=== PATIENT | female | born 1955 | race Hispanic/Latino ===

== ENCOUNTER 2017-09-08 20:28 | Emergency (ER) | payer BC ==
[~2017-09-08] VITALS: Ht 162.6 cm; Wt 99.8 kg
[~2017-09-08 20:28] MED LIST: ASPIRIN PO; HYDROCHLOROTHIA25 MG PO; LOSARTAN-HCTZ1 EAC1 PO; POTASSIUM CHLO10 ME1 PO; PREVACID15 MG PO; SERTRALINE HCL50 MG PO; TOPROL XL100 MG PO
[2017-09-08] MEDS ORDERED: IBUPROFEN 600 MG TAB PO STA (21:12)
[2017-09-08] MEDS ORDERED: IBUPROFEN 600 MG TAB ONE (21:17)
[2017-09-08 21:33] LABS: STREPTOCOCCUS GRP A ANTIGEN POSITIVE (NEGATIVE)
--- NOTE | 2017-09-08 21:39 | Diagnostic Imaging Report ---
CHEST 2 VIEWS, Technique: CHEST 2 VIEWS Comparison: 02/15/2017, 12/08/2015 Clinical history: Cough, congestion, fever DISCUSSION: Mildly enlarged cardiac silhouette, stable from priors. No edema or consolidation. No pleural effusion or pneumothorax. IMPRESSION: No acute abnormality Signed by: Dr Lee Ann Wiggins MD on 09/08/2017 9:35 PM
[2017-09-08 21:55] LABS: INFLUENZAE A&B ANTIGEN (RAPID) POSITIVE FLU A (NEGATIVE)
[2017-09-08] MEDS ORDERED: PENICILLIN G BENZATHINE LA 1.2 MU TBX IM STA (22:03)
[2017-09-08] MEDS ORDERED: PENICILLIN G BENZATHINE LA 1.2 MU TBX ONE (22:10)
== END 2017-09-08 23:12 | disposition home or self-care (01) ==
LOC: ER 20:28
DX: R50.9 Fever, unspecified (principal); R05 Cough; J09.X2 Influenza due to identified novel influenza A virus with other respiratory manifestations
CPT/HCPCS: 71020; 83518; 87400; 96372; 99283; J0561

== ENCOUNTER → 2018-04-05 | Outpatient (CLI) | payer BC | LOC: RAD 10:34 | PROVIDERS: ATTEND Family Medicine | DX: M79.602 Pain in left arm (principal) | CPT/HCPCS: 93971 ==

== ENCOUNTER → 2018-07-13 | Outpatient (CLI) | payer BC | LOC: RAD 09:44 | PROVIDERS: ATTEND Family Medicine | DX: M79.605 Pain in left leg (principal); M79.604 Pain in right leg | CPT/HCPCS: 93970 ==

== ENCOUNTER 2019-01-24 11:50 | Emergency (ER) | payer MEDICARE, OTHER ==
[~2019-01-24] VITALS: Ht 162.6 cm; Wt 99.8 kg
--- OUTSIDE RECORDS SUMMARY | 2019-01-24 11:53 | XMS REPORT ---
Author Author Keyon Ferrell Organization [employer] Address Unknown Phone Unavailable Care Team Providers Care Talent Development Analyst Name Role Phone Keyon Ferrell CP Unavailable Allergies No Known Allergies Problems Problem Type Condition Code Onset Dates Condition Status Problem Rheumatoid arthritis with positive rheumatoid factor M05.9 Active Problem Back pain of lumbar region with sciatica M54.40 Active Problem Raised antibody titer R76.0 Active Problem Inflammatory arthritis M19.90 Active Problem Rheumatoid factor positive R76.8 Active Problem Long-term use of high-risk medication Z79.899 Active Medications No Known Medications Results No Known Results Summary Purpose eClinicalWorks Submission
--- OUTSIDE RECORDS SUMMARY | 2019-01-24 11:53 | XMS REPORT ---
Author Author Luis Fernando Solis Organization [employer] Address Unknown Phone Unavailable Care Team Providers Care Split Leather Department Supervisor Name Role Phone Luis Fernando Solis CP Unavailable Allergies No Known Allergies Problems Problem Type Condition Code Onset Dates Condition Status Problem Rheumatoid arthritis with positive rheumatoid factor M05.9 Active Problem Back pain of lumbar region with sciatica M54.40 Active Problem Raised antibody titer R76.0 Active Problem Inflammatory arthritis M19.90 Active Problem Rheumatoid factor positive R76.8 Active Problem Long-term use of high-risk medication Z79.899 Active Medications Medication Code System Code Instructions Start Date End Date Status Dosage Folic Acid [facility] 21337533106 1MG Orally Once a day Oct 29, 2018 Active 1 tablet Results No Known Results Summary Purpose eClinicalWorks Submission
--- OUTSIDE RECORDS SUMMARY | 2019-01-24 11:53 | XMS REPORT ---
Author Author Luis Fernando Solis [facility] eClinicalWorks Address Unknown Phone Unavailable Care Team Providers Care Packer Fuser Name Role Phone Luis Fernando Solis Unavailable Allergies, Adverse Reactions, Alerts Substance Reaction Event Type contrast allergy Info Not Available Non Drug Allergy Problems Problem Type Condition Code Onset Dates Condition Status Assessment Long-term use of high-risk medication Z79.899 Active Problem Rheumatoid arthritis with positive rheumatoid factor M05.9 Active Problem Back pain of lumbar region with sciatica M54.40 Active Problem Raised antibody titer R76.0 Active Problem Inflammatory arthritis M19.90 Active Assessment Rheumatoid arthritis with positive rheumatoid factor M05.9 Active Problem Rheumatoid factor positive R76.8 Active Problem Long-term use of high-risk medication Z79.899 Active Medications Medication Code System Code Instructions Start Date End Date Status Dosage Methotrexate ND 67914189070 2.5 MG Orally Once a week Active 8 tablets Metoprolol Succinate ER ND 51185143737 100 MG Orally Once a day Active 1 tablet PredniSONE ND 45412729017 5MG Once a day Active 1-2 tabs prn for arthritis flare up Folic Acid ND 95644464364 1MG Active TAKE ONE TABLET BY MOUTH ONCE DAILY FOR 30 DAYS Robson Low Dose [facility] 43553085385 81 MG Orally Once a day Active 1 tablet Methotrexate ND 51083919539 2.5MG Active TAKE EIGHT TABLETS BY MOUTH ONCE A WEEK Hydroxychloroquine Sulfate ND 70000395678 200MG Active TAKE ONE TABLET BY MOUTH TWICE DAILY WITH FOOD [place] [address]-71 10 MEQ Orally once a day Active 1 capsule with food Losartan Potassium-HCTZ ND 34624414888 100-25 MG Orally Once a day Active 1 tablet Sertraline HCl ND 25548599906 50 MG Orally Once a day Active 1 tablet Fluticasone Propionate ND 38512379697 50 MCG/ACT Nasally Once a day Active 1 spray in each nostril Hydrochlorothiazide ND 07673355777 25 MG Orally Once a day Active 1 tablet Vital Signs Date/Time: Jul 27, 2017 BMI 44.07 Index Weight 241 lbs Height 62 in Temperature 97.0 F Cardiac Monitoring Heart Rate 82 /min Blood Pressure Diastolic 72 mm Hg Blood Pressure Systolic 128 mm Hg Results No Known Results Summary Purpose eClinicalWorks Submission
--- OUTSIDE RECORDS SUMMARY | 2019-01-24 11:53 | XMS REPORT ---
Author Author Keyon Ferrell Organization [employer] Address Unknown Phone Unavailable Care Team Providers Care Petrophysical Engineer Name Role Phone Keyon Ferrell CP Unavailable [...]
--- OUTSIDE RECORDS SUMMARY | 2019-01-24 11:53 | XMS REPORT | Continuity of Care Document ---
Author Author [facility] Transaction Wireless [facility] Interface Address Unknown Phone Unavailable Problems Problem Status Onset Date Classification Date Reported Comments Source Rheumatoid arthritis with positive rheumatoid factor Active Problem 2019 Federico Ghassan Back pain of lumbar region with sciatica Active Problem 2019 Federico Fergusoner Raised antibody titer Active Problem 2019 Federico Fergusoner Inflammatory arthritis Active Problem 2019 Federico Fergusoner Rheumatoid factor positive Active Problem 2019 Federico Fergusoner Long-term use of high-risk medication Active Problem 2019 Federico Ferrell Fatigue Active Diagnosis 01/04/2018 Federico Ferrell Other chest pain Active Diagnosis 04/18/2018 Federico Ferrell Medications Medication Details Route Status Patient Instructions Ordering Provider Order Date Source PredniSONE 1-2 tablet Orally Active 5MG Orally Once a day prn Will 03/07/2019 Federico Ferrell Folic Acid 1 tablet Orally Active 1MG Orally Once a day Will 10/29/2018 Federico Ferrell Methotrexate 8 tablets Orally Active 2.5MG Orally Once a week Will 08/30/2018 Federico Ferrell Simponi Aria as directed Intravenous Active 50 MG/4ML Intravenous Will 07/04/2018 Federico Ferrell Methotrexate 8 tablets Orally Active 2.5 MG Orally Once a week Will 03/12/2018 Federico Ferrell Methotrexate TAKE EIGHT TABLETS BY MOUTH ONCE A WEEK NA Active 2.5MG Will 03/08/2018 Federico Ferrell Alendronate Sodium 1 tablet Orally Active 70 MG Orally Once a week Will 01/05/2018 Federico Ferrell Vitamin D (Ergocalciferol) 1 capsule Orally Active 39808 UNIT Orally once a week Will 01/01/2018 Federico Ferrell Xeljanz XR 1 tablet Orally Active 11 MG Orally Once a day Will 12/28/2017 Federico Ferrell Methotrexate 8 tablets Orally Active 2.5 MG Orally Once a week Will Federico Ferrell Metoprolol Succinate ER 1 tablet Orally Active 100 MG Orally Once a day Will Federico Ferrell PredniSONE 1 tablet Orally Active 5MG Orally Once a day Federico Ferrell Folic Acid 1 tablet Orally Active 1MG Orally Once a day Federico Ferrell Robson Low Dose 1 tablet Orally Active 81 MG Orally Once a day Federico Ferrell Methotrexate TAKE EIGHT TABLETS BY MOUTH ONCE A WEEK NA Active 2.5MG Federico Ferrell Hydroxychloroquine Sulfate 1 tablet with food or milk Orally Active 200MG Orally Twice a day Federico Ferrell Potassium Chloride 1 capsule with food Orally Active 10 MEQ Orally once a day Federico Ferrell Losartan Potassium-HCTZ 1 tablet Orally Active 100-25 MG Orally Once a day Federico Ferrell Sertraline HCl 1 tablet Orally Active 50 MG Orally Once a day Federico Ferrell Fluticasone Propionate 1 spray in each nostril Nasally Active 50 MCG/ACT Nasally Once a day Federico Ferrell Hydrochlorothiazide 1 tablet Orally Active 25 MG Orally Once a day Federico Ferrell Methotrexate 8 tablets Orally Active 2.5MG Orally Once a week Federico Ferrell Folic Acid 1 tablet Orally Active 1MG Orally Once a day Federico Ferrell Alendronate Sodium 1 tablet Orally Active 70 MG Orally Once a week Federico Ferrell Vitamin D (Ergocalciferol) 1 capsule Orally Active 53841 UNIT Orally once a week Federico Ferrell Vitamin D (Ergocalciferol) TAKE 1 CAPSULE BY MOUTH ONCE A WEEK NA Active 64961 UNIT Federico Ferrell Gabapentin 2 capsules Orally Active 300 MG Orally Once a day Federico Ferrell Potassium Chloride 1 capsule with food Orally Active 10 MEQ Orally once a day Federico Ferrell Gabapentin 2 capsules Orally Active 300 MG Orally Once a day Federico Ferrell Hydroxychloroquine Sulfate TAKE 1 TABLET BY MOUTH TWICE DAILY WITH FOOD OR MILK NA Active 200 MG Will Federico Ferrell Allergies, Adverse Reactions, Alerts Substance Category Reaction Severity Reaction type Status Date Reported Comments Source contrast allergy Adverse Reaction Info Not Available Adverse Reaction Active 11/07/2018 Federico Ferrell Xeljanz Adverse Reaction stomach upset, nausea Adverse Reaction Active 11/07/2018 Federico Ferrell Hydroxychloroquine Sulfate Adverse Reaction Info Not Available Adverse Reaction Active 11/07/2018 Federico Ferrell Immunizations Immunization Date Given Site Status Last Updated Comments Source Results Order Name Results Value Reference Range Date Interpretation Comments Source Vital Signs Vital Sign Value Date Comments Source Diastolic (mm Hg) 68 11/07/2018 Federico Ferrell Systolic (mm Hg) 120 11/07/2018 Fedreico Ferrell Height 62 11/07/2018 Federico Ferrell Temperature Oral (F) 98.0 F 11/07/2018 Federico Ferrell Heart Rate 66 11/07/2018 Federico Ferrell Weight 257.1 08/30/2018 Federico Ferrell Height 62 08/30/2018 Federico Ferrell Temperature Oral (F) 97.9 F 08/30/2018 Federico Ferrell Heart Rate 60 08/30/2018 Federico Ferrell Diastolic (mm Hg) 68 08/30/2018 Federico Ferrell Systolic (mm Hg) 140 08/30/2018 Federico Ferrell Weight 252.7 07/04/2018 Federico Ferrell Height 62 07/04/2018 Federico Ferrell Temperature Oral (F) 97.0 F 07/04/2018 Federico Ferrell Heart Rate 56 07/04/2018 Federico Ferrell Diastolic (mm Hg) 65 07/04/2018 Federico Ferrell Systolic (mm Hg) 133 07/04/2018 Federico Ferrell Weight 253.9 06/06/2018 Federico Ferrell Height 62 06/06/2018 Fdeerico Ferrell Temperature Oral (F) 97.4 F 06/06/2018 Federico Ferrell Heart Rate 58 06/06/2018 Federico Ferrell Diastolic (mm Hg) 66 06/06/2018 Federico Ferrell Systolic (mm Hg) 140 06/06/2018 Federico Ferrell Weight 249 04/09/2018 Federico Ferrell Height 62 04/09/2018 Federico Ferrell Temperature Oral (F) 99.0 F 04/09/2018 Federico Ferrell Heart Rate 72 04/09/2018 Federico Ferrell Diastolic (mm Hg) 70 04/09/2018 Federico Ferrell Systolic (mm Hg) 122 04/09/2018 Federico Ferrell Weight 255.6 02/20/2018 Federico Ferrell Height 62 02/20/2018 Federico Ferrell Temperature Oral (F) 97.6 F 02/20/2018 Federico Ferrell Heart Rate 82 02/20/2018 Federico Ferrell Diastolic (mm Hg) 90 02/20/2018 Federico Ferrell Systolic (mm Hg) 154 02/20/2018 Federico Ferrell Weight 245 12/28/2017 Federico Ferrell Height 62 12/28/2017 Federico Ferrell Temperature Oral (F) 97.8 F 12/28/2017 Federico Ferrell Heart Rate 60 12/28/2017 Federico Ferrell Diastolic (mm Hg) 72 12/28/2017 Federico Ferrell Systolic (mm Hg) 116 12/28/2017 Federico Ferrell Weight 243 09/29/2017 Federico Ferrell Height 62 09/29/2017 Federico Ferrell Temperature Oral (F) 98.3 F 09/29/2017 Federico Ferrell Heart Rate 80 09/29/2017 Federico Ferrell Diastolic (mm Hg) 78 09/29/2017 Federico Ferrell Systolic (mm Hg) 152 09/29/2017 Federico Ferrell Weight 241 07/27/2017 Federico Ferrell Height 62 07/27/2017 Federico Ferrell Temperature Oral (F) 97.0 F 07/27/2017 Fedreico Ferrell Heart Rate 82 07/27/2017 Federico Ferrell Diastolic (mm Hg) 72 07/27/2017 Federico Ferrell Systolic (mm Hg) 128 07/27/2017 Federico Ferrell Encounters Location Location Details Encounter Type Encounter Number Reason For Visit Attending Provider ADM Date DC Date Status Source Procedures Procedure Code Date Perfomer Comments Source
--- OUTSIDE RECORDS SUMMARY | 2019-01-24 11:54 | XMS REPORT ---
Author Author Luis Fernando Solis Organization [employer] Address Unknown Phone Unavailable Care Team Providers Care Pull Through Hooker Name Role Phone Luis Fernando Solis CP [...] Start Date End Date Status Dosage Methotrexate [facility] 97618027095 2.5MG March 08, 2018 Active TAKE EIGHT TABLETS BY MOUTH ONCE A WEEK Results No Known Results Summary Purpose eClinicalWorks Submission
--- OUTSIDE RECORDS SUMMARY | 2019-01-24 11:54 | XMS REPORT ---
Author Author Keyon Ferrell Organization [employer] Address Unknown Phone Unavailable Care Team Providers Care Lehr Stripper Name Role Phone Keyon Ferrell CP Unavailable [...]
--- OUTSIDE RECORDS SUMMARY | 2019-01-24 11:54 | XMS REPORT ---
Author Author Keyon Ferrell Organization [employer] Address Unknown Phone Unavailable Care Team Providers Care Liner Roll Changer Name Role Phone Keyon Ferrell CP Unavailable [...]
--- OUTSIDE RECORDS SUMMARY | 2019-01-24 11:54 | XMS REPORT ---
Author Author Keyon Ferrell Organization [employer] Address Unknown Phone Unavailable Care Team Providers Care Lead Laying And Gluing Machine Operator Name Role Phone Keyon Ferrell CP Unavailable [...]
--- OUTSIDE RECORDS SUMMARY | 2019-01-24 11:54 | XMS REPORT ---
Author Author Keyon Ferrell Organization [employer] Address Unknown Phone Unavailable Care Team Providers Care Maintenance Department Manager Name Role Phone Keyon Ferrell CP Unavailable [...]
--- OUTSIDE RECORDS SUMMARY | 2019-01-24 11:54 | XMS REPORT ---
Author Author Olivia Patrick [facility] eClinicalWorks Address Unknown Phone Unavailable Care Team Providers Care Gymnastics Coach Or Instructor Name Role Phone Olivia Patrick Unavailable Allergies, Adverse Reactions, Alerts Substance Reaction Event Type Xeljanz stomach upset, nausea Non Drug Allergy contrast allergy Info Not Available Non Drug Allergy Problems Problem Type Condition Code Onset Dates Condition Status Assessment Inflammatory arthritis M19.90 Active Assessment Long-term use of high-risk medication Z79.899 [...] Instructions Start Date End Date Status Dosage Fluticasone Propionate [facility] 78524246088 50 MCG/ACT Nasally Once a day Active 1 spray in each nostril PredniSONE ND 59001810084 5MG Orally Once a day Active 1 tablet Vitamin D (Ergocalciferol) [facility] 42405959093 23070 UNIT Orally once a week Active 1 capsule Methotrexate ND 90494840241 2.5MG Orally Once a week Active 8 tablets Hydrochlorothiazide ND 50861208445 25 MG Orally Once a day Active 1 tablet Potassium Chloride [facility] [address]-54 10 MEQ Orally once a day Active 1 capsule with food Methotrexate ND 55521652692 2.5 MG Orally Once a week Active 8 tablets Folic Acid [facility] 03999158203 1MG Orally Once a day Active 1 tablet Robson Low Dose [facility] 04021616173 81 MG Orally Once a day Active 1 tablet Hydroxychloroquine Sulfate ND 43710086367 200MG Orally Twice a day Active 1 tablet with food or milk Sertraline HCl ND 73580022603 50 MG Orally Once a day Active 1 tablet Alendronate Sodium [facility] 78266441468 70 MG Orally Once a week Active 1 tablet Metoprolol Succinate ER [facility] 14867743751 100 MG Orally Once a day Active 1 tablet Losartan Potassium-HCTZ [facility] 08203520761 100-25 MG Orally Once a day Active 1 tablet Vital Signs Date/Time: Jun 06, 2018 BMI 46.43 Index Weight 253.9 lbs Height 62 in Temperature 97.4 F Cardiac Monitoring Heart Rate 58 /min Blood Pressure Diastolic 66 mm Hg Blood Pressure Systolic 140 mm Hg Results No Known Results Summary Purpose eClinicalWorks Submission
--- OUTSIDE RECORDS SUMMARY | 2019-01-24 11:54 | XMS REPORT ---
Author Author Luis Fernando Solis [facility] eClinicalWorks Address Unknown Phone Unavailable Care Team Providers Care Medical Front Desk Coordinator Name Role Phone Luis Fernando Solis CP Unavailable Allergies, Adverse Reactions, Alerts Substance Reaction Event Type Xeljanz stomach upset, nausea Non Drug Allergy contrast allergy Info Not Available Non Drug Allergy Problems Problem Type Condition Code Onset Dates Condition Status Assessment Rheumatoid arthritis with positive rheumatoid factor M05.9 Active Assessment Long-term use of high-risk medication [...] Instructions Start Date End Date Status Dosage Hydroxychloroquine Sulfate ND 70652057458 200MG Orally Twice a day Active 1 tablet with food or milk Potassium Chloride [facility] [address]-29 10 MEQ Orally once a day Active 1 capsule with food Metoprolol Succinate ER ND 47295218186 100 MG Orally Once a day Active 1 tablet Folic Acid ND 56648664359 1MG Orally Once a day Active 1 tablet Hydrochlorothiazide ND 78867913444 25 MG Orally Once a day Active 1 tablet Methotrexate ND 52001615874 2.5 MG Orally Once a week Active 8 tablets Robson Low Dose ND 22788498998 81 MG Orally Once a day Active 1 tablet Alendronate Sodium ND 46256807185 70 MG Orally Once a week Active 1 tablet Vitamin D (Ergocalciferol) ND 71147308317 42476 UNIT Orally once a week Active 1 capsule Losartan Potassium-HCTZ ND 03038136325 100-25 MG Orally Once a day Active 1 tablet Simponi Aria ND 96541838033 50 MG/4ML Intravenous Jul 04, 2018 Active as directed Fluticasone Propionate NDC 88303211402 50 MCG/ACT Nasally Once a day Active 1 spray in each nostril Methotrexate ND 20388520049 2.5MG Orally Once a week Active 8 tablets Sertraline HCl [facility] 26525589731 50 MG Orally Once a day Active 1 tablet PredniSONE [facility] 49171138781 5MG Orally Once a day Active 1 tablet Vital Signs Date/Time: Jul 04, 2018 BMI 46.21 Index Weight 252.7 lbs Height 62 in Temperature 97.0 F Cardiac Monitoring Heart Rate 56 /min Blood Pressure Diastolic 65 mm Hg Blood Pressure Systolic 133 mm Hg Results No Known Results Summary Purpose eClinicalWorks Submission
--- OUTSIDE RECORDS SUMMARY | 2019-01-24 11:54 | XMS REPORT ---
Author Author Keyon Ferrell Organization eClinicalWorks Address Unknown Phone Unavailable Care Team Providers Care Drivers' Cash Clerk Name Role Phone Keyon Ferrell CP Unavailable [...]
--- OUTSIDE RECORDS SUMMARY | 2019-01-24 11:54 | XMS REPORT ---
Author Author Keyon Ferrell Organization [employer]Works Address Unknown Phone Unavailable Care Team Providers Care Accounts Receivable Manager Name Role Phone Keyon Ferrell CP [...] Instructions Start Date End Date Status Dosage Vitamin D (Ergocalciferol) [facility][NOTE 3] 67643991545 79553 UNIT Orally once a week January 01, 2018 Active 1 capsule Results No Known Results Summary Purpose eClinicalWorks Submission
--- OUTSIDE RECORDS SUMMARY | 2019-01-24 11:54 | XMS REPORT ---
Author Author Luis Fernando Solis [facility] eClinicalWorks Address Unknown Phone Unavailable Care Team Providers Care Development Analyst Name Role Phone Luis Fernando Solis CP [...] Date End Date Status Dosage Methotrexate ND 88820504534 2.5MG Active TAKE EIGHT TABLETS BY MOUTH ONCE A WEEK Metoprolol Succinate ER ND 64347952554 100 MG Orally Once a day Active 1 tablet Potassium Chloride [facility] [address]-46 10 MEQ Orally once a day Active 1 capsule with food Losartan Potassium-HCTZ ND 98725334663 100-25 MG Orally Once a day Active 1 tablet Robson Low Dose ND 85904624853 81 MG Orally Once a day Active 1 tablet PredniSONE ND 39221121416 5MG Orally Once a day Active 1 tablet Methotrexate ND 15996026932 2.5 MG Orally Once a week Active 8 tablets Folic Acid ND 38364795103 1MG Orally Once a day Active 1 tablet Hydroxychloroquine Sulfate ND 56971920490 200MG Orally twice a day Active 1 tablet with food or milk Sertraline HCl ND 99508094119 50 MG Orally Once a day Active 1 tablet Fluticasone Propionate ND 42259724860 50 MCG/ACT Nasally Once a day Active 1 spray in each nostril Hydrochlorothiazide ND 60734812750 25 MG Orally Once a day Active 1 tablet Vital Signs Date/Time: Sep 29, 2017 BMI 44.44 Index Weight 243 lbs Height 62 in Temperature 98.3 F Cardiac Monitoring Heart Rate 80 /min Blood Pressure Diastolic 78 mm Hg Blood Pressure Systolic 152 mm Hg Results Name Result Date Reference Range Unit Abnormality Flag COMPREHENSIVE METABOLIC PANEL W/EGFR ----CALCIUM 9.2 20170929 8.6-10.4 mg/dL N ----CARBON DIOXIDE 29 20170929 20-31 mmol/L N ----ALT 14 20170929 6-29 U/L N ----CREATININE 0.79 20170929 0.50-0.99 mg/dL N ----AST 14 20170929 10-35 U/L N ----eGFR NON-AFR. INDIAN 80 20170929 > OR=60 mL/min/1.73m2 N ----ALKALINE PHOSPHATASE 78 20170929 33-130 U/L N ----eGFR 92 20170929 > OR=60 mL/min/1.73m2 N ----BILIRUBIN, TOTAL 0.7 20170929 0.2-1.2 mg/dL N ----BUN/CREATININE RATIO NOT APPLICABLE 2017092922 (calc) ----ALBUMIN/GLOBULIN RATIO 1.5 20170929 1.0-2.5 (calc) N ----SODIUM 143 20170929 135-146 mmol/L N ----GLOBULIN 2.6 20170929 1.9-3.7 g/dL (calc) N ----POTASSIUM 3.3 20170929 3.5-5.3 mmol/L L ----GLUCOSE 93 20170929 65-99 mg/dL N ----CHLORIDE 104 20170929 98-110 mmol/L N ----ALBUMIN 3.8 20170929 3.6-5.1 g/dL N ----UREA NITROGEN (BUN) 20 20170929 7-25 mg/dL N ----PROTEIN, TOTAL 6.4 20170929 6.1-8.1 g/dL N SED RATE BY MODIFIED WESTERGREN ----SED RATE BY MODIFIED WESTERGREN 22 20170929 < OR=30 mm/h N C-REACTIVE PROTEIN ----C-REACTIVE PROTEIN 5.9 65213261 <8.0 mg/L N CBC (INCLUDES DIFF/PLT) ----MCHC 33.8 12843050 32.0-36.0 g/dL N ----MCH 31.4 90390363 27.0-33.0 pg N ----PLATELET COUNT 229 24977211 140-400 Thousand/uL N ----RDW 14.4 13772018 11.0-15.0 % N ----BASOPHILS 0.3 38367679 % N ----ABSOLUTE NEUTROPHILS 3835 66324717 0522-3303 cells/uL N ----ABSOLUTE LYMPHOCYTES 1263 48608730 850-3900 cells/uL N ----MPV 11.0 48937033 7.5-12.5 fL N ----ABSOLUTE BASOPHILS 18 97331478 0-200 cells/uL N ----HEMATOCRIT 36.4 02224568 35.0-45.0 % N ----NEUTROPHILS 65 71398115 % N ----MCV 92.9 50774974 80.0-100.0 fL N ----RED BLOOD CELL COUNT 3.92 68724235 3.80-5.10 Million/uL N ----ABSOLUTE MONOCYTES 743 14271895 200-950 cells/uL N ----ABSOLUTE EOSINOPHILS 41 00141570 15-500 cells/uL N ----HEMOGLOBIN 12.3 94510357 11.7-15.5 g/dL N ----EOSINOPHILS 0.7 88040574 % N ----WHITE BLOOD CELL COUNT 5.9 94747938 3.8-10.8 Thousand/uL N ----LYMPHOCYTES 21.4 59579500 % N ----MONOCYTES 12.6 48215921 % N Summary Purpose eClinicalWorks Submission
--- OUTSIDE RECORDS SUMMARY | 2019-01-24 11:54 | XMS REPORT ---
[facility] Address Unknown Phone Unavailable Care Team Providers Care Halver Machine Operator Name Role Phone Karime BLANTON Unavailable Unavailable Problems This patient has no known problems. Allergies, Adverse Reactions, Alerts This patient has no known allergies or adverse reactions. Medications This patient has no known medications. Results Test Description Test Time Test Comments Text Results Atomic Results Result Comments CHEST 2 VIEWS [place] [address] Patient Name: NELA LITTLEJOHN MR #: [id number] : 1955 Age/Sex: 62/F Req #: [id number] Adm Physician: Ordered by: DANIS BLANTON MD Report #: [id number] Location: ER Room/Bed: Procedure: [id number] DX/CHEST 2 VIEWS Exam Date: 09/08/17 Exam Time: 2124 REPORT STATUS: Signed CHEST 2 VIEWS, Technique: CHEST 2 VIEWS Comparison: 02/15/2017, 12/08/2015 Clinical history: Cough, congestion, fever DISCUSSION: Mildly enlarged cardiac silhouette, stable from priors. No edema or consolidation. No pleural effusion or pneumothorax. IMPRESSION: No acute abnormality Signed by: Dr Goldy Wiggins MD on 09/08/2017 9:35 PM Dictated By: GOLDY WIGGINS MD [id number] Transcribed By: TIMOTHY on 09/08/178 COPY TO: DANIS BLANTON MD
--- OUTSIDE RECORDS SUMMARY | 2019-01-24 11:54 | XMS REPORT ---
Author Author Keyon Ferrell Organization eClinicalWorks Address Unknown Phone Unavailable Care Team Providers Care Braider Tender Name Role Phone Keyon Ferrell CP Unavailable [...]
--- OUTSIDE RECORDS SUMMARY | 2019-01-24 11:54 | XMS REPORT ---
Author Author Luis Fernando Solis [facility] eClinicalWorks Address Unknown Phone Unavailable Care Team Providers Care Entry Level Project Engineer Name Role Phone Luis Fernando Solis Unavailable Allergies, Adverse Reactions, Alerts Substance Reaction Event Type contrast allergy Info Not Available Non Drug Allergy Problems Problem Type Condition Code Onset Dates Condition Status Assessment Long-term use of high-risk medication Z79.899 Active Assessment Fatigue R53.83 Active Problem Rheumatoid arthritis with positive rheumatoid [...] Date End Date Status Dosage Methotrexate ND 82125484444 2.5MG Active TAKE EIGHT TABLETS BY MOUTH ONCE A WEEK Robson Low Dose [facility] 60946649630 81 MG Orally Once a day Active 1 tablet Xeljanz XR ND 74191724801 11 MG Orally Once a day December 28, 2017 Apr 27, 2018 Active 1 tablet Fluticasone Propionate ND 74561895328 50 MCG/ACT Nasally Once a day Active 1 spray in each nostril Hydroxychloroquine Sulfate ND 97910091668 200MG Orally Twice a day Active 1 tablet with food or milk Metoprolol Succinate ER ND 79286578043 100 MG Orally Once a day Active 1 tablet Hydrochlorothiazide ND 22502562918 25 MG Orally Once a day Active 1 tablet Folic Acid ND 52869352889 1MG Active TAKE ONE TABLET BY MOUTH ONCE DAILY FOR 30 DAYS Potassium Chloride [facility] [address]-80 10 MEQ Orally once a day Active 1 capsule with food PredniSONE ND 90430853764 5MG Active TAKE ONE TABLET BY MOUTH ONCE DAILY FOR 30 DAYS DIRECTED Methotrexate ND 45150805714 2.5 MG Orally Once a week Active 8 tablets Losartan Potassium-HCTZ [facility] 15650242882 100-25 MG Orally Once a day Active 1 tablet Sertraline HCl [facility] 58974005001 50 MG Orally Once a day Active 1 tablet Vital Signs Date/Time: December 28, 2017 BMI 44.81 Index Weight 245 lbs Height 62 in Temperature 97.8 F Cardiac Monitoring Heart Rate 60 /min Blood Pressure Diastolic 72 mm Hg Blood Pressure Systolic 116 mm Hg Results Name Result Date Reference Range Unit Abnormality Flag TSH, 3RD GENERATION W/REFLEX TO FT4 ----TSH W/REFLEX TO FT4 2.58 [id number] 0.40-4.50 mIU/L N VITAMIN B12/FOLATE, SERUM PANEL ----VITAMIN B12 250 [id number] 200-1100 pg/mL N ----FOLATE, SERUM >24.0 71780752 ng/mL N C-REACTIVE PROTEIN ----C-REACTIVE PROTEIN 7.3 [id number] <8.0 mg/L N CBC (INCLUDES DIFF/PLT) ----MCHC 34.0 57834329 32.0-36.0 g/dL N ----MCH 32.1 84833314 27.0-33.0 pg N ----PLATELET COUNT 254 89261818 140-400 Thousand/uL N ----RDW 13.6 17213709 11.0-15.0 % N ----BASOPHILS 0.2 26574921 % N ----ABSOLUTE NEUTROPHILS 7031 55576400 3213-6673 cells/uL N ----ABSOLUTE LYMPHOCYTES 1086 17892800 850-3900 cells/uL N ----MPV 11.0 62998823 7.5-12.5 fL N ----ABSOLUTE BASOPHILS 18 07959978 0-200 cells/uL N ----HEMATOCRIT 37.9 80663877 35.0-45.0 % N ----NEUTROPHILS 79 16116470 % N ----MCV 94.3 40204027 80.0-100.0 fL N ----RED BLOOD CELL COUNT 4.02 [id number] 3.80-5.10 Million/uL N ----ABSOLUTE MONOCYTES 730 82802858 200-950 cells/uL N ----ABSOLUTE EOSINOPHILS 36 61325990 15-500 cells/uL N ----HEMOGLOBIN 12.9 20171228 11.7-15.5 g/dL N ----EOSINOPHILS 0.4 15361102 % N ----WHITE BLOOD CELL COUNT 8.9 20171228 3.8-10.8 Thousand/uL N ----LYMPHOCYTES 12.2 31995014 % N ----MONOCYTES 8.2 87616522 % N VITAMIN D, 25-HYDROXY, LC/MS/MS ----VITAMIN D, 25-OH, TOTAL 9 20171228 30-100 ng/mL L COMPREHENSIVE METABOLIC PANEL W/EGFR ----POTASSIUM 3.8 20171228 3.5-5.3 mmol/L N ----SODIUM 142 20171228 135-146 mmol/L N ----BUN/CREATININE RATIO NOT APPLICABLE 20171228 6-22 (calc) ----eGFR 81 20171228 > OR=60 mL/min/1.73m2 N ----eGFR NON-AFR. SAMOAN 70 [id number] > OR=60 mL/min/1.73m2 N ----CREATININE 0.88 20171228 0.50-0.99 mg/dL N ----UREA NITROGEN (BUN) 20 20171228 7-25 mg/dL N ----GLUCOSE 95 20171228 65-139 mg/dL N ----AST 20 20171228 10-35 U/L N ----GLOBULIN 2.7 20171228 1.9-3.7 g/dL (calc) N ----ALT 22 20171228 6-29 U/L N ----ALBUMIN/GLOBULIN RATIO 1.4 20171228 1.0-2.5 (calc) N ----BILIRUBIN, TOTAL 0.7 20171228 0.2-1.2 mg/dL N ----ALKALINE PHOSPHATASE 90 20171228 33-130 U/L N ----CARBON DIOXIDE 32 20171228 20-31 mmol/L H ----CALCIUM 9.4 20171228 8.6-10.4 mg/dL N ----PROTEIN, TOTAL 6.6 20171228 6.1-8.1 g/dL N ----ALBUMIN 3.9 69218723 3.6-5.1 g/dL N ----CHLORIDE 104 20171228 98-110 mmol/L N SED RATE BY MODIFIED WESTERGREN ----SED RATE BY MODIFIED WESTERGREN 17 20171228 < OR=30 mm/h N Summary Purpose eClinicalWorks Submission
--- OUTSIDE RECORDS SUMMARY | 2019-01-24 11:54 | XMS REPORT ---
Author Author Luis Fernando Solis [facility] eClinicalWorks Address Unknown Phone Unavailable Care Team Providers Care Paint Grinder Stone [employer] Name Role Phone Luis Fernando Solis Unavailable [...] Instructions Start Date End Date Status Dosage Potassium Chloride [facility] [address]-12 10 MEQ Orally once a day Active 1 capsule with food Folic Acid [facility] 66263761295 1MG Orally Once a day Active 1 tablet Fluticasone Propionate [facility] 92041864288 50 MCG/ACT Nasally Once a day Active 1 spray in each nostril Hydrochlorothiazide ND 96652895489 25 MG Orally Once a day Active 1 tablet Sertraline HCl ND 09914387560 50 MG Orally Once a day Active 1 tablet Hydroxychloroquine Sulfate ND 06250194390 200MG Orally Twice a day Active 1 tablet with food or milk Alendronate Sodium ND 29612197251 70 MG Orally Once a week Active 1 tablet PredniSONE ND 59479645510 5MG Orally Once a day Active 1 tablet Methotrexate ND 68477096908 2.5MG Orally Once a week Active 8 tablets Robson Low Dose ND 41357225832 81 MG Orally Once a day Active 1 tablet Metoprolol Succinate ER ND 07259910610 100 MG Orally Once a day Active 1 tablet Methotrexate ND 91461441322 2.5 MG Orally Once a week Active 8 tablets Losartan Potassium-HCTZ [facility] 07058826091 100-25 MG Orally Once a day Active 1 tablet Vitamin D (Ergocalciferol) [facility] 08424748715 02057 UNIT Orally once a week Active 1 capsule Vital Signs Date/Time: April 09, 2018 BMI 45.54 Index Weight 249 lbs Height 62 in Temperature 99.0 F Cardiac Monitoring Heart Rate 72 /min Blood Pressure Diastolic 70 mm Hg Blood Pressure Systolic 122 mm Hg Results No Known Results Summary Purpose eClinicalWorks Submission
--- OUTSIDE RECORDS SUMMARY | 2019-01-24 11:54 | XMS REPORT ---
Author Author Keyon Ferrell Organization eClinicalWorks Address Unknown Phone Unavailable Care Team Providers Care Head Irrigator Name Role Phone Keyon Ferrell CP Unavailable [...]
--- OUTSIDE RECORDS SUMMARY | 2019-01-24 11:54 | XMS REPORT ---
Author Author Keyon Ferrell Organization eClinicalWorks Address Unknown Phone Unavailable Care Team Providers Care Delivery Tech Name Role Phone Keyon Ferrell CP Unavailable [...]
--- OUTSIDE RECORDS SUMMARY | 2019-01-24 11:54 | XMS REPORT ---
Author Author Luis Fernando Solis Organization eClinicalWorks Address Unknown Phone Unavailable Care Team Providers Care Linotype Machinist Apprentice Name Role Phone Luis Fernando Solis CP Unavailable Allergies No Known Allergies Problems Problem Type Condition Code Onset Dates Condition Status Problem Rheumatoid arthritis with positive rheumatoid factor M05.9 Active Problem Back pain of lumbar region with sciatica M54.40 Active Problem Raised antibody titer R76.0 Active Problem Inflammatory arthritis M19.90 Active Assessment Other chest pain R07.89 Active Problem Rheumatoid factor positive R76.8 Active Problem Long-term use of high-risk medication Z79.899 Active Medications No Known Medications Results No Known Results Summary Purpose eClinicalWorks Submission
--- OUTSIDE RECORDS SUMMARY | 2019-01-24 11:54 | XMS REPORT ---
Author Author Luis Fernando Solis [facility] eClinicalWorks Address Unknown Phone Unavailable Care Team Providers Care Disc Ruler Operator Name Role Phone Luis Fernando Solis CP [...]
--- OUTSIDE RECORDS SUMMARY | 2019-01-24 11:54 | XMS REPORT ---
Author Author Keyon Ferrell Organization eClinicalWorks Address Unknown Phone Unavailable Care Team Providers Care Spa Therapist Name Role Phone Keyon Ferrell CP Unavailable [...]
--- OUTSIDE RECORDS SUMMARY | 2019-01-24 11:54 | XMS REPORT ---
Author Author Luis Fernando Solis Organization eClinicalWorks Address Unknown Phone Unavailable Care Team Providers Care Masonry Installer Name Role Phone Luis Fernando Solis CP [...] Start Date End Date Status Dosage Methotrexate [facility] 91521839634 2.5 MG Orally Once a week March 12, 2018 Active 8 tablets Results No Known Results Summary Purpose eClinicalWorks Submission
--- OUTSIDE RECORDS SUMMARY | 2019-01-24 11:54 | XMS REPORT ---
Author Author Luis Fernando Solis [facility] eClinicalWorks Address Unknown Phone Unavailable Care Team Providers Care Grocery Cashier Name Role Phone Luis Fernando Solis Unavailable Allergies, Adverse Reactions, Alerts Substance Reaction Event Type Hydroxychloroquine Sulfate Info Not Available Drug Allergy contrast allergy Info Not Available Non Drug Allergy Xeljanz stomach upset, nausea Non Drug Allergy Problems Problem Type Condition [...] Instructions Start Date End Date Status Dosage Losartan Potassium-HCTZ [facility] 56791311602 100-25 MG Orally Once a day Active 1 tablet PredniSONE [facility] 60532556830 5MG Orally Once a day Active 1 tablet Methotrexate ND 76006469547 2.5MG Orally Once a week Aug 30, 2018 Active 8 tablets Fluticasone Propionate [facility] 29833776875 50 MCG/ACT Nasally Once a day Active 1 spray in each nostril Vitamin D (Ergocalciferol) [facility] 26648129557 74600 UNIT Active TAKE 1 CAPSULE BY MOUTH ONCE A WEEK Simponi Aria [facility] 27420639113 50 MG/4ML Intravenous Jul 04, 2018 Active as directed Hydroxychloroquine Sulfate ND 28450992009 200MG Orally Twice a day Inactive 1 tablet with food or milk Gabapentin [facility] [address]-31 300 MG Orally Once a day Active 2 capsules Alendronate Sodium [facility] 95243561635 70 MG Orally Once a week Active 1 tablet Metoprolol Succinate ER ND 80413811016 100 MG Orally Once a day Active 1 tablet Potassium Chloride [facility] [address]-10 10 MEQ Orally once a day Active 1 capsule with food Hydrochlorothiazide [facility] 52348330049 25 MG Orally Once a day Active 1 tablet Sertraline HCl [facility] 64358123970 50 MG Orally Once a day Active 1 tablet Folic Acid [facility] 43402442798 1MG Orally Once a day Active 1 tablet Robson Low Dose [facility] 98840335766 81 MG Orally Once a day Active 1 tablet Methotrexate [facility] 57263787148 2.5 MG Orally Once a week Active 8 tablets Vital Signs Date/Time: Aug 30, 2018 BMI 47 Index Weight 257.1 lbs Height 62 in Temperature 97.9 F Cardiac Monitoring Heart Rate 60 /min Blood Pressure Diastolic 68 mm Hg Blood Pressure Systolic 140 mm Hg Results No Known Results Summary Purpose eClinicalWorks Submission
--- OUTSIDE RECORDS SUMMARY | 2019-01-24 11:54 | XMS REPORT ---
Author Author Keyon Ferrell Organization eClinicalWorks Address Unknown Phone Unavailable Care Team Providers Care Systems Integration Advisor Name Role Phone Keyon Ferrell CP Unavailable [...]
--- OUTSIDE RECORDS SUMMARY | 2019-01-24 11:54 | XMS REPORT ---
Author Author Keyon Ferrell Organization eClinicalWorks Address Unknown Phone Unavailable Care Team Providers Care Facilities Custodian Name Role Phone Keyon Ferrell CP Unavailable [...]
--- OUTSIDE RECORDS SUMMARY | 2019-01-24 11:54 | XMS REPORT ---
Author Author Keyon Ferrell Organization eClinicalWorks Address Unknown Phone Unavailable Care Team Providers Care Residential Sales Consultant Name Role Phone Keyon Ferrell CP Unavailable [...]
--- OUTSIDE RECORDS SUMMARY | 2019-01-24 11:54 | XMS REPORT ---
Author Author Luis Fernando Solis [facility] eClinicalWorks Address Unknown Phone Unavailable Care Team Providers Care Wire Mesh Gate Assembler Name Role Phone Luis Fernando Solis CP [...] Instructions Start Date End Date Status Dosage Sertraline HCl [facility] 56367062350 50 MG Orally Once a day Active 1 tablet Metoprolol Succinate ER ND 51182983998 100 MG Orally Once a day Active 1 tablet Potassium Chloride [facility] [address]-43 10 MEQ Orally once a day Active 1 capsule with food Robson Low Dose [facility] 54221621095 81 MG Orally Once a day Active 1 tablet Hydroxychloroquine Sulfate ND 77309161111 200MG Orally Twice a day Active 1 tablet with food or milk Hydrochlorothiazide ND 65183925377 25 MG Orally Once a day Active 1 tablet Xeljanz XR [facility] 80230050474 11 MG Orally Once a day December 28, 2017 Apr 27, 2018 Active 1 tablet Folic Acid [facility] 84700261005 1MG Active TAKE 1 TABLET BY MOUTH ONCE DAILY Losartan Potassium-HCTZ ND 64488127779 100-25 MG Orally Once a day Active 1 tablet Methotrexate ND 18366090487 2.5MG Active TAKE EIGHT TABLETS BY MOUTH ONCE A WEEK Vitamin D (Ergocalciferol) [facility] 44102848164 48709 UNIT Orally once a week January 01, 2018 Active 1 capsule Methotrexate [facility] 62985612607 2.5 MG Orally Once a week Active 8 tablets Fluticasone Propionate [facility] 50896346064 50 MCG/ACT Nasally Once a day Active 1 spray in each nostril Alendronate Sodium [facility] 70429532584 70 MG Orally Once a week January 05, 2018 Active 1 tablet PredniSONE [facility] 31095434655 5MG Active TAKE 1 TABLET BY MOUTH ONCE DAILY FOR 30 DAYS Vital Signs Date/Time: February 20, 2018 BMI 46.74 Index Weight 255.6 lbs Height 62 in Temperature 97.6 F Cardiac Monitoring Heart Rate 82 /min Blood Pressure Diastolic 90 mm Hg Blood Pressure Systolic 154 mm Hg Results Name Result Date Reference Range Unit Abnormality Flag COMPREHENSIVE METABOLIC PANEL W/EGFR ----ALBUMIN/GLOBULIN RATIO 1.5 20180220 1.0-2.5 (calc) N ----GLOBULIN 2.5 20180220 1.9-3.7 g/dL (calc) N ----ALKALINE PHOSPHATASE 85 20180220 33-130 U/L N ----BILIRUBIN, TOTAL 0.6 20180220 0.2-1.2 mg/dL N ----CHLORIDE 108 20180220 98-110 mmol/L N ----ALT 16 20180220 6-29 U/L N ----POTASSIUM 4.5 20180220 3.5-5.3 mmol/L N ----AST 16 20180220 10-35 U/L N ----SODIUM 142 20180220 135-146 mmol/L N ----BUN/CREATININE RATIO NOT APPLICABLE 20180220 6-22 (calc) ----eGFR 90 20180220 > OR=60 mL/min/1.73m2 N ----CALCIUM 9.2 20180220 8.6-10.4 mg/dL N ----CARBON DIOXIDE 29 20180220 20-31 mmol/L N ----ALBUMIN 3.7 20180220 3.6-5.1 g/dL N ----PROTEIN, TOTAL 6.2 20180220 6.1-8.1 g/dL N ----GLUCOSE 89 20180220 65-139 mg/dL N ----UREA NITROGEN (BUN) 20 20180220 7-25 mg/dL N ----CREATININE 0.80 20180220 0.50-0.99 mg/dL N ----eGFR NON-AFR. [place] 78 20180220 > OR=60 mL/min/1.73m2 N Summary Purpose eClinicalWorks Submission
--- OUTSIDE RECORDS SUMMARY | 2019-01-24 11:54 | XMS REPORT ---
Author Author Luis Fernando Solis [facility] eClinicalWorks Address Unknown Phone Unavailable Care Team Providers Care Internet E Commerce Specialist Name Role Phone Luis Fernando Solis Unavailable Allergies, Adverse Reactions, Alerts Substance Reaction Event Type Hydroxychloroquine Sulfate Info Not Available Drug Allergy Xeljanz stomach upset, nausea Non [...] Date End Date Status Dosage Methotrexate ND 69814440621 2.5MG Orally Once a week Aug 30, 2018 Active 8 tablets Sertraline HCl ND 85419855498 50 MG Orally Once a day Active 1 tablet Methotrexate ND 04290170848 2.5 MG Orally Once a week Active 8 tablets Losartan Potassium-HCTZ ND 44378841056 100-25 MG Orally Once a day Active 1 tablet Hydrochlorothiazide ND 68533867402 25 MG Orally Once a day Active 1 tablet Gabapentin ND 56345239144 300 MG Orally Once a day Active 2 capsules Alendronate Sodium ND 56305583460 70 MG Orally Once a week Active 1 tablet Metoprolol Succinate ER ND 32880923913 100 MG Orally Once a day Active 1 tablet Fluticasone Propionate ND 05173376663 50 MCG/ACT Nasally Once a day Active 1 spray in each nostril Hydroxychloroquine Sulfate ND 79894118247 200 MG Active TAKE 1 TABLET BY MOUTH TWICE DAILY WITH FOOD OR MILK Folic Acid ND 74562442229 1MG Orally Once a day Oct 29, 2018 Active 1 tablet Hydroxychloroquine Sulfate [facility] [place] 37328970374 200 MG Active TAKE 1 TABLET BY MOUTH TWICE DAILY WITH FOOD OR MILK Robson Low Dose [facility] [place] 39638044012 81 MG Orally Once a day Active 1 tablet Vitamin D (Ergocalciferol) [facility] [place] 30134905664 18720 UNIT Active TAKE 1 CAPSULE BY MOUTH ONCE A WEEK Simponi Aria [facility] [place] 51991092003 50 MG/4ML Intravenous Jul 04, 2018 Active as directed PredniSONE [facility] [place] 59235945060 5MG Orally Once a day prn March 07, 2019 Active 1-2 tablet Potassium Chloride [facility] [place] [address]-15 10 MEQ Orally once a day Active 1 capsule with food Vital Signs Date/Time: Nov 07, 2018 Blood Pressure Diastolic 68 mm Hg Blood Pressure Systolic 120 mm Hg Height 62 in Temperature 98.0 F Cardiac Monitoring Heart Rate 66 /min Results No Known Results Summary Purpose eClinicalWorks Submission
--- OUTSIDE RECORDS SUMMARY | 2019-01-24 11:54 | XMS REPORT ---
Author Author Luis Fernando Solis Organization eClinicalWorks Address Unknown Phone Unavailable Care Team Providers Care Social Studies Teacher Name Role Phone Luis Fernando Solis CP [...] Instructions Start Date End Date Status Dosage Alendronate Sodium [facility] 40027717550 70 MG Orally Once a week January 05, 2018 Active 1 tablet Results No Known Results Summary Purpose eClinicalWorks Submission
--- OUTSIDE RECORDS SUMMARY | 2019-01-24 11:54 | XMS REPORT ---
Author Author Keyon Ferrell Organization eClinicalWorks Address Unknown Phone Unavailable Care Team Providers Care Mold Injector Name Role Phone Keyon Ferrell CP Unavailable [...]
--- OUTSIDE RECORDS SUMMARY | 2019-01-24 11:54 | XMS REPORT ---
Author Author Keyon Ferrell Organization eClinicalWorks Address Unknown Phone Unavailable Care Team Providers Care Combination Saw Operator Name Role Phone Keyon Ferrell CP [...]
[2019-01-24] MEDS ORDERED: HYDROCODONE/APAP 5MG-325MG TAB PO NR (12:30)
--- NOTE | 2019-01-24 14:11 | Diagnostic Imaging Report ---
EXAMINATION: CT of the abdomen and pelvis without contrast. TECHNIQUE: Spiral CT images of the abdomen and pelvis were performed from the lung bases to the lesser trochanters. No intravenous contrast was given per iodine allergy. Coronal and sagittal reformatted images were obtained. COMPARISON: None. CLINICAL HISTORY:Trauma, fall, right lower rib and right upper quadrant abdominal pain DISCUSSION: ABSENCE OF INTRAVENOUS CONTRAST DECREASES SENSITIVITY FOR DETECTION OF FOCAL LESIONS AND VASCULAR PATHOLOGY. ABDOMEN/PELVIS: LOWER THORAX: Unremarkable. HEPATOBILIARY:1.4 cm simple cyst in segment 3. Adjacent subcentimeter hypoattenuating lesion is too small to further characterize but likely to represent an additional simple cyst. Otherwise no focal hepatic lesion. No intrahepatic biliary dilatation. The gallbladder has been removed. SPLEEN: No splenomegaly. PANCREAS: No focal masses or ductal dilatation. ADRENALS: No adrenal nodules. KIDNEYS/URETERS: No hydronephrosis, stones, or solid mass lesions. Partially duplicated left collecting system. PELVIC ORGANS/BLADDER: The bladder is collapsed and poorly evaluated. Uterus is not identified and has presumably been removed. No adnexal mass. PERITONEUM/RETROPERITONEUM: No ascites. No pneumoperitoneum. LYMPH NODES: No pelvic sidewall, retroperitoneal, or mesenteric lymphadenopathy. VESSELS: Limited evaluation without intravenous contrast. The abdominal aorta is nonaneurysmal. Atherosclerotic calcifications throughout. GI TRACT: The large bowel is notable for multiple sigmoid diverticula without wall thickening or adjacent inflammatory change. The appendix is normal. The stomach is collapsed with prominent rugal folds. No small bowel dilatation to suggest obstruction. BONES AND SOFT TISSUES: No acute osseous abnormality. No right-sided rib fractures of the visualized right lower ribs. Degenerative disc changes and facet arthropathy of the lumbar spine. No focal soft tissue abnormalities area IMPRESSION: No acute traumatic intra-abdominal or pelvic CT abnormality within limitations of a noncontrast examination. No fractures of the visualized lower right-sided ribs. Atherosclerotic vascular disease. Large bowel diverticulosis without findings of diverticulitis. Signed by: Dr. Tanvir Belle M.D. on 01/24/2019 2:08 PM
--- NOTE | 2019-01-24 14:15 | Diagnostic Imaging Report ---
Exam: Right RIBS History: Fall, pain to palpation of right lower ribs Comparison: CT abdomen and pelvis same day Findings: Chest: The lungs are well-inflated and without focal consolidation, pleural effusion, or pneumothorax. Cardiomediastinal contour and pulmonary vasculature are within normal limits for portable technique. Right upper quadrant surgical clips compatible with prior cholecystectomy. No displaced right rib fracture. Impression: No displaced right rib fracture or pneumothorax. Signed by: Dr. Tanvir Belle M.D. on 01/24/2019 2:11 PM
[2019-01-24] MEDS ORDERED: TYLENOL WITH C1 EACH PO (14:32)
== END 2019-01-24 16:09 | disposition home or self-care (01) ==
LOC: ER 11:50
DX: S20.211A Contusion of right front wall of thorax, initial encounter (principal); S30.1XXA Contusion of abdominal wall, initial encounter; W01.0XXA Fall on same level from slipping, tripping and stumbling without subsequent striking against object, initial encounter; Y92.008 Other place in unspecified non-institutional (private) residence as the place of occurrence of the external cause; F32.9 Major depressive disorder, single episode, unspecified
CPT/HCPCS: 71101; 74176; 99283

== ENCOUNTER 2021-02-21 20:43 | Emergency (ER) | payer MEDICARE, OTHER ==
[~2021-02-21] VITALS: Ht 162.6 cm; Wt 99.8 kg
[~2021-02-21 20:43] MED LIST changes: +TYLENOL WITH C1 EACH PO
[2021-02-21 21:54] LABS: BASOPHILS % 0.2 % (0.0-1.0); EOSINOPHILS # (AUTO) 0.2 (0.0-0.4); EOSINOPHILS % 2.3 % (0.0-6.0); HEMATOCRIT 39.2 % (34.2-44.1); HEMOGLOBIN 13.3 g/dL (12.0-16.0); LYMPHOCYTES # (AUTO) 2.1 (1.0-3.2); LYMPHOCYTES % 26.1 % (18.0-39.1); MEAN CORPUSCULAR HEMOGLOBIN 32.2 pg (28-32); MEAN CORPUSCULAR HGB CONC 33.9 g/dL (31-35); MEAN CORPUSCULAR VOLUME 94.9 fL (81-99); MONOCYTES % 12.2 % (4.4-11.3); NEUTROPHILS # (AUTO) 4.8 (2.1-6.9); NEUTROPHILS % 58.6 % (38.7-80.0); PLATELET COUNT 193 x10e3/uL (140-360); RED BLOOD COUNT 4.13 x10e6/uL (3.6-5.1); RED CELL DISTRIBUTION WIDTH 14.6 % (11.7-14.4)
[2021-02-21 22:11] LABS: ALBUMIN 3.6 g/dL (3.5-5.0); ANION GAP 15.6 mmol/L (8-16); CALCIUM 8.9 mg/dL (8.4-10.2); CREATININE, SERUM 0.96 mg/dL (0.57-1.11); POTASSIUM 3.6 mmol/L (3.5-5.1)
[2021-02-21 22:17] LABS: CREATINE KINASE MB 1.1 ng/mL (0-5.0)
[2021-02-22] MEDS ORDERED: KETOROLAC TROMETHAMINE 60 MG/2 ML VIAL ONE (00:21)
[2021-02-22] MEDS ORDERED: KETOROLAC TROMETHAMINE 60 MG/2 ML VIAL IM ONE (00:30)
[2021-02-22 00:40] LABS: CREATINE KINASE MB 1.1 ng/mL (0-5.0)
[2021-02-22] MEDS ORDERED: VALIUM5 MG PO (01:25)
[2021-02-22 01:32] VITALS: BP 160/67
== END 2021-02-22 01:40 | disposition home or self-care (01) ==
LOC: ER 22:03
DX: R07.9 Chest pain, unspecified (principal); I10 Essential (primary) hypertension; F32.9 Major depressive disorder, single episode, unspecified
CPT/HCPCS: 36415; 71045; 80053; 82550; 82553; 84484; 85025; 93005; 99283; J1885

== ENCOUNTER 2021-03-11 09:09 | Emergency (ER) | payer MEDICARE ==
[~2021-03-11] VITALS: Ht 162.6 cm; Wt 99.8 kg
[~2021-03-11 09:09] MED LIST changes: +VALIUM5 MG PO
[2021-03-11] MEDS ORDERED: CLONIDINE HCL 0.2 MG TAB PO ONE (09:30)
[2021-03-11 10:45] VITALS: BP 173/75
[2021-03-11] MEDS ORDERED: CLONIDINE HCL0.1 MG PO (10:52)
== END 2021-03-11 10:46 | disposition home or self-care (01) ==
LOC: ER 09:15
DX: I10 Essential (primary) hypertension (principal); F32.9 Major depressive disorder, single episode, unspecified; G89.29 Other chronic pain
CPT/HCPCS: 93005; 99283

== ENCOUNTER → 2021-06-09 | Day surgery (SDC) | payer MEDICARE, OTHER ==
[2021-06-07 15:00] LABS: BASOPHILS % 0.4 % (0.0-1.0); EOSINOPHILS # (AUTO) 0.1 (0.0-0.4); EOSINOPHILS % 0.8 % (0.0-6.0); HEMATOCRIT 40.1 % (34.2-44.1); HEMOGLOBIN 13.3 g/dL (12.0-16.0); LYMPHOCYTES % 36.2 % (18.0-39.1); MEAN CORPUSCULAR HGB CONC 33.2 g/dL (31-35); MEAN CORPUSCULAR VOLUME 96.6 fL (81-99); MONOCYTES # (AUTO) 1.1 (0.2-0.8); MONOCYTES % 12.7 % (4.4-11.3); NEUTROPHILS # (AUTO) 4.1 (2.1-6.9); NEUTROPHILS % 49.1 % (38.7-80.0); PLATELET COUNT 216 x10e3/uL (140-360); RED BLOOD COUNT 4.15 x10e6/uL (3.6-5.1); RED CELL DISTRIBUTION WIDTH 14.5 % (11.7-14.4)
[~2021-06-09] MED LIST changes: +ASPIRIN81 MG PO; +CLONIDINE HCL0.1 MG PO; +CYMBALTA20 MG PO; +DIOVAN HCT 1601 EACH; +FOLIC ACID0.8 MG; +METHOTREXATE2.5 MG PO; +NEURONTIN100 MG PO; +OMEPRAZOLE40 MG PO; +VITAMIN D
[2021-06-09 10:55] VITALS: BP 116/52
== END | disposition home or self-care (01) ==
LOC: OR 08:05
PROVIDERS: ATTEND Internal Medicine Gastroenterology
DX: K21.9 Gastro-esophageal reflux disease without esophagitis (principal); D12.0 Benign neoplasm of cecum; D12.2 Benign neoplasm of ascending colon; D12.4 Benign neoplasm of descending colon; K29.70 Gastritis, unspecified, without bleeding; K29.80 Duodenitis without bleeding; K31.89 Other diseases of stomach and duodenum; K20.90 Esophagitis, unspecified without bleeding; K44.9 Diaphragmatic hernia without obstruction or gangrene; K57.30 Diverticulosis of large intestine without perforation or abscess without bleeding; K64.8 Other hemorrhoids; G47.33 Obstructive sleep apnea (adult) (pediatric); I10 Essential (primary) hypertension; M32.9 Systemic lupus erythematosus, unspecified; M06.9 Rheumatoid arthritis, unspecified; Z91.041 Radiographic dye allergy status; Z68.41 Body mass index [BMI] 40.0-44.9, adult; Z87.01 Personal history of pneumonia (recurrent)
CPT/HCPCS: 36415; 43239; 45380; 45385; 85025; 88305; 88312; 93005; U0002; 45378

== ENCOUNTER 2021-08-09 06:27 | Inpatient (IN) | payer MEDICARE, OTHER ==
[~2021-08-09] VITALS: Ht 160 cm; Wt 118.4 kg
[~2021-08-09 06:27] MED LIST changes: +METFORMIN HCL500 MG PO; +PANTOPRAZOLE SO40 MG PO
[2021-08-09] MEDS ORDERED: SODIUM CHLORIDE 0.9% 50ML 100 ML ONE (06:57)
[2021-08-09] MEDS ORDERED: BUPIVACAINE 0.25% 30ML SDV ONE (07:51)
[2021-08-09] MEDS ORDERED: SODIUM CHLORIDE 0.9% 50ML 50 ML ONE (10:05)
[2021-08-09] MEDS ORDERED: SUGAMMADEX SODIUM 200 MG/2 ML VIAL IV ONE (10:05)
[2021-08-09] MEDS ORDERED: ACETAMINOPHEN 1000 MG/100 ML 100 ML IV ONE (10:13)
[2021-08-09] MEDS ORDERED: PROPOFOL IV EMULSION 10 MG/ML 20 ML VIAL ONE (12:00)
[2021-08-09] MEDS ORDERED: PHENYLEPHRINE HCL 1% 10 MG/ML VIAL ONE (12:00)
[2021-08-09] MEDS ORDERED: POVIDONE IODINE 0.05% 0.05 % ML PO ONE (12:00)
[2021-08-09] MEDS ORDERED: SEVOFLURANE INHAL SOLN 250 ML PEN BTL ONE (12:00)
[2021-08-09] MEDS ORDERED: LIDOCAINE HCL 2% LOCAL INJ 5 ML SDV VIAL INJ ONE (12:00)
[2021-08-09] MEDS ORDERED: EPHEDRINE SULFATE INJ 50 MG/ML VIAL ONE (12:00)
[2021-08-09] MEDS ORDERED: GLYCOPYRROLATE INJ 0.2 MG/ML VIAL ONE (12:00)
[2021-08-09] MEDS ORDERED: ROCURONIUM BROMIDE 10 MG/ML 5ML VIAL IV ONE (12:00)
[2021-08-09] MEDS ORDERED: ONDANSETRON HCL INJ 2MG/ML 2ML 2 MG/ML VIAL ONE ×2 (12:00→12:03)
[2021-08-09] MEDS ORDERED: DEXAMETHASONE SOD PHOS INJ 4 MG/ML SDV ONE (12:00)
[2021-08-09] MEDS ORDERED: METOCLOPRAMIDE HCL 10 MG/2ML VIAL ONE (12:03)
[2021-08-09] MEDS ORDERED: SCOPOLAMINE 1.5 MG PATCH ONE (12:35)
[2021-08-09 13:29] VITALS: BP 129/50
[2021-08-09 13:34] VITALS: BP 129/50
[2021-08-09] MEDS ORDERED: MIDAZOLAM HCL 2 MG/2 ML VIAL ONE (14:00)
[2021-08-09] MEDS ORDERED: FENTANYL CITRATE/PF 100MCG/2 ML INJ ONE (14:00)
[2021-08-09] MEDS: SODIUM CHLORIDE 0.9% 1000ML 1,000 ML IV SCH ×2 (14:17→20:54)
[2021-08-09 15:05] VITALS: BP 148/61
[2021-08-09] MEDS: GABAPENTIN 300 MG CAP PO SCH (16:51)
[2021-08-09] MEDS: Morphine 2mg Syringe 2 MG/ML SYR IV PRN (16:51)
[2021-08-09] MEDS: ONDANSETRON HCL INJ 2MG/ML 2ML 2 MG/ML VIAL IV PRN (17:03)
[2021-08-09 19:37] VITALS: BP 162/61
[2021-08-09 20:00] VITALS: BP 162/61
[2021-08-09] MEDS: ENOXAPARIN SOD INJ 40 MG/0.4 ML SYR SC SCH (20:45)
[2021-08-09] MEDS ORDERED: METOPROLOL SUCCINATE 50 MG TAB XL PO SCH (21:00)
[2021-08-09 23:58] VITALS: BP 116/64
[2021-08-10] MEDS: Morphine 2mg Syringe 2 MG/ML SYR IV PRN (00:22)
[2021-08-10] MEDS: SODIUM CHLORIDE 0.9% 1000ML 1,000 ML IV SCH (04:40)
[2021-08-10 05:08] VITALS: BP 160/72
[2021-08-10 05:23] LABS: BASOPHILS % 0.1 % (0.0-1.0); HEMATOCRIT 37.2 % (34.2-44.1); HEMOGLOBIN 12.2 g/dL (12.0-16.0); LYMPHOCYTES # (AUTO) 1.5 (1.0-3.2); LYMPHOCYTES % 15.1 % (18.0-39.1); MEAN CORPUSCULAR HEMOGLOBIN 32.2 pg (28-32); MEAN CORPUSCULAR HGB CONC 32.8 g/dL (31-35); MEAN CORPUSCULAR VOLUME 98.2 fL (81-99); MONOCYTES % 10.3 % (4.4-11.3); NEUTROPHILS # (AUTO) 7.5 (2.1-6.9); NEUTROPHILS % 74.2 % (38.7-80.0); PLATELET COUNT 203 x10e3/uL (140-360); RED BLOOD COUNT 3.79 x10e6/uL (3.6-5.1); RED CELL DISTRIBUTION WIDTH 13.8 % (11.7-14.4)
[2021-08-10 05:51] LABS: ANION GAP 12.2 mmol/L (8-16); CALCIUM 8.2 mg/dL (8.4-10.2); CREATININE, SERUM 0.8 mg/dL (0.57-1.11); MAGNESIUM 1.8 MG/DL (1.3-2.1); PHOSPHORUS 2.9 MG/DL (2.3-4.7); POTASSIUM 4.2 mmol/L (3.5-5.1)
[2021-08-10 07:40] VITALS: BP 149/56
[2021-08-10 07:44] VITALS: BP 149/56
[2021-08-10] MEDS: GABAPENTIN 300 MG CAP PO SCH (08:11)
[2021-08-10] MEDS: ENOXAPARIN SOD INJ 40 MG/0.4 ML SYR SC SCH (08:12)
[2021-08-10] MEDS: HYDROCODONE/APAP 7.5MG-325MG 1 EA TAB PO PRN ×2 (08:19→13:15)
[2021-08-10] MEDS: ONDANSETRON HCL INJ 2MG/ML 2ML 2 MG/ML VIAL IV PRN (08:29)
[2021-08-10] MEDS ORDERED: DULOXETINE HCL 20 MG DELAYED RELEASE PO SCH (09:00)
[2021-08-10] MEDS ORDERED: PANTOPRAZOLE SOD 40 MG TABEC PO SCH (09:00)
[2021-08-10] MEDS ORDERED: ONDANSETRON HCL 4 MG ORAL DISINTEGRATING TAB PO PRN (11:15)
[2021-08-10 11:57] VITALS: BP 152/62
== END 2021-08-10 13:43 | disposition home or self-care (01) | DRG 621 ==
LOC: OR 06:27 → OBSVTOIN 12:14 → PACU V 12:14 → MED/SURG 12:54
PROVIDERS: ADMIT Internal Medicine; ATTEND Internal Medicine
PROC: 0D164ZA Bypass Stomach to Jejunum, Percutaneous Endoscopic Approach (ICD-10-PCS; principal; 2021-08-09 08:00)
DX: E66.01 Morbid (severe) obesity due to excess calories (principal); Z68.42 Body mass index [BMI] 45.0-49.9, adult; G47.33 Obstructive sleep apnea (adult) (pediatric); K21.9 Gastro-esophageal reflux disease without esophagitis; I11.9 Hypertensive heart disease without heart failure
CPT/HCPCS: 36415; 80048; 82948; 83735; 84100; 85025; 94799; J0690; J1100; J1650; J2001; J2250; J2270; J2370; J2405; J2765; J3010; J7030; U0002

== ENCOUNTER 2021-11-25 15:23 | Emergency (ER) | payer MEDICARE, OTHER ==
[~2021-11-25] VITALS: Ht 160 cm; Wt 118.4 kg
[2021-11-25 16:24] LABS: BASOPHILS % 0.4 % (0.0-1.0); EOSINOPHILS # (AUTO) 0.1 (0.0-0.4); EOSINOPHILS % 0.9 % (0.0-6.0); HEMATOCRIT 41.4 % (34.2-44.1); HEMOGLOBIN 14.1 g/dL (12.0-16.0); LYMPHOCYTES # (AUTO) 1.8 (1.0-3.2); LYMPHOCYTES % 23.4 % (18.0-39.1); MEAN CORPUSCULAR HEMOGLOBIN 33.3 pg (28-32); MEAN CORPUSCULAR HGB CONC 34.1 g/dL (31-35); MEAN CORPUSCULAR VOLUME 97.6 fL (81-99); MONOCYTES # (AUTO) 0.7 (0.2-0.8); MONOCYTES % 8.9 % (4.4-11.3); NEUTROPHILS % 66.1 % (38.7-80.0); PLATELET COUNT 262 x10e3/uL (140-360); RED BLOOD COUNT 4.24 x10e6/uL (3.6-5.1); RED CELL DISTRIBUTION WIDTH 14.7 % (11.7-14.4)
[2021-11-25 16:34] LABS: INR 0.96; PROTHROMBIN TIME 13.7 seconds (11.9-14.5)
[2021-11-25 16:35] LABS: PARTIAL THROMBOPLASTIN TIME 27.8 seconds (23.8-35.5)
[2021-11-25 16:42] LABS: ALBUMIN 3.7 g/dL (3.5-5.0); ALBUMIN/GLOBULIN RATIO 1.1 (0.8-2.0); ANION GAP 11.2 mmol/L (8-16); CREATININE, SERUM 0.99 mg/dL (0.57-1.11); POTASSIUM 3.2 mmol/L (3.5-5.1)
[2021-11-25 16:43] LABS: CALCIUM 9.5 mg/dL (8.4-10.2)
[2021-11-25 16:48] LABS: CREATINE KINASE MB 0.5 ng/mL (0-5.0)
[2021-11-25] MEDS ORDERED: POTASSIUM CHLORIDE 20 MEQ TAB CR PO STA (16:48)
[2021-11-25] MEDS ORDERED: ULTRAM50 MG PO (17:44)
== END 2021-11-25 18:04 | disposition home or self-care (01) ==
LOC: ER 15:43
DX: R07.89 Other chest pain (principal); I10 Essential (primary) hypertension; F32.A Depression, unspecified; R94.31 Abnormal electrocardiogram [ECG] [EKG]; Z98.84 Bariatric surgery status
CPT/HCPCS: 36415; 70450; 71045; 80053; 82550; 82553; 83735; 83880; 84484; 85025; 85610; 85730; 93005; 99284

== ENCOUNTER 2021-12-02 13:00 | Observation (INO) | payer MEDICARE, OTHER ==
[~2021-12-02] VITALS: Ht 160 cm; Wt 118.4 kg
[~2021-12-02 13:00] MED LIST changes: +ULTRAM50 MG PO
[2021-12-02] MEDS ORDERED: SODIUM CHLORIDE 0.9% 1000ML 1,000 ML IV SCH ×2 (13:30→15:45)
[2021-12-02] MEDS ORDERED: SODIUM CHLORIDE 0.9% 1000ML 1,000 ML ONE (13:36)
[2021-12-02 13:40] LABS: BASOPHILS % 0.1 % (0.0-1.0); EOSINOPHILS # (AUTO) 0.1 (0.0-0.4); EOSINOPHILS % 1.3 % (0.0-6.0); HEMATOCRIT 36.4 % (34.2-44.1); HEMOGLOBIN 12.4 g/dL (12.0-16.0); LYMPHOCYTES # (AUTO) 1.3 (1.0-3.2); LYMPHOCYTES % 19.6 % (18.0-39.1); MEAN CORPUSCULAR HEMOGLOBIN 33.3 pg (28-32); MEAN CORPUSCULAR HGB CONC 34.1 g/dL (31-35); MEAN CORPUSCULAR VOLUME 97.8 fL (81-99); MONOCYTES # (AUTO) 0.6 (0.2-0.8); MONOCYTES % 9.2 % (4.4-11.3); NEUTROPHILS # (AUTO) 4.7 (2.1-6.9); NEUTROPHILS % 69.5 % (38.7-80.0); PLATELET COUNT 202 x10e3/uL (140-360); RED BLOOD COUNT 3.72 x10e6/uL (3.6-5.1); RED CELL DISTRIBUTION WIDTH 14.4 % (11.7-14.4)
[2021-12-02] MEDS ORDERED: SODIUM CHLORIDE 0.9% 1000ML 1,000 ML IV ONE (14:00)
[2021-12-02 14:04] LABS: ALBUMIN 3.2 g/dL (3.5-5.0); ALBUMIN/GLOBULIN RATIO 1.1 (0.8-2.0); ANION GAP 9.8 mmol/L (8-16); CALCIUM 8.5 mg/dL (8.4-10.2); CREATININE, SERUM 0.74 mg/dL (0.57-1.11); POTASSIUM 3.8 mmol/L (3.5-5.1)
[2021-12-02] MEDS ORDERED: ACETAMINOPHEN 325 MG TAB PO PRN (15:15)
[2021-12-02] MEDS ORDERED: ONDANSETRON HCL INJ 2MG/ML 2ML 2 MG/ML VIAL IV PRN (15:15)
[2021-12-02] MEDS ORDERED: ACETAMINOPHEN/CODEINE 300MG - 30MG TAB PO PRN (15:45)
[2021-12-02 15:56] LABS: THYROID STIMULATING HORMONE 3.487 uIU/mL (0.350-4.940)
[2021-12-02 16:05] VITALS: BP 143/61
[2021-12-02 18:02] VITALS: BP 143/61
[2021-12-02 19:20] VITALS: BP 150/64
[2021-12-02 20:00] VITALS: BP 150/64
[2021-12-03 01:13] VITALS: BP 147/59
[2021-12-03 05:34] VITALS: BP 173/72
[2021-12-03 08:00] VITALS: BP 176/65
[2021-12-03 08:14] VITALS: BP 176/65
[2021-12-03] MEDS ORDERED: PANTOPRAZOLE SOD 40 MG TABEC PO SCH (09:00)
[2021-12-03] MEDS ORDERED: ASPIRIN 81 MG CHEW TAB PO SCH (09:00)
[2021-12-03] MEDS ORDERED: LOSARTAN POTASSIUM 100 MG TAB PO ONE (10:30)
[2021-12-03] MEDS ORDERED: ONDANSETRON HCL 4 MG ORAL DISINTEGRATING TAB PO PRN (11:30)
[2021-12-03] MEDS ORDERED: LOSARTAN POTASS25 MG PO (14:09)
== END 2021-12-03 11:57 | disposition home or self-care (01) ==
LOC: ER 13:02 → ERHOLD 14:44 → MED/SURG3 16:10
PROVIDERS: ADMIT Internal Medicine; ATTEND Internal Medicine
DX: R41.82 Altered mental status, unspecified (principal); R00.1 Bradycardia, unspecified; I10 Essential (primary) hypertension; T42.6X5A Adverse effect of other antiepileptic and sedative-hypnotic drugs, initial encounter; T42.8X5A Adverse effect of antiparkinsonism drugs and other central muscle-tone depressants, initial encounter; Y92.019 Unspecified place in single-family (private) house as the place of occurrence of the external cause; M16.11 Unilateral primary osteoarthritis, right hip; Z91.041 Radiographic dye allergy status; E66.9 Obesity, unspecified; Z68.42 Body mass index [BMI] 45.0-49.9, adult; G89.4 Chronic pain syndrome; F32.A Depression, unspecified; Z98.84 Bariatric surgery status; Z90.49 Acquired absence of other specified parts of digestive tract; Z96.652 Presence of left artificial knee joint; Z20.822 Contact with and (suspected) exposure to COVID-19
CPT/HCPCS: 36415; 70450; 71045; 80053; 82948; 83605; 84436; 84443; 84479; 84484; 85025; 87040; 93005; 94799 ×2; 96361 ×2; 99284; G0378 ×2; J7030; S0164; U0002; 96360

== ENCOUNTER → 2024-04-25 | Day surgery (SDC) | payer MEDICARE, OTHER ==
[2024-04-23 11:45] LABS: BASOPHILS % 0.4 % (0.0-1.0); EOSINOPHILS # (AUTO) 0.1 (0.0-0.4); EOSINOPHILS % 2.3 % (0.0-6.0); HEMATOCRIT 36.8 % (34.2-44.1); HEMOGLOBIN 11.9 g/dL (12.0-16.0); LYMPHOCYTES # (AUTO) 1.8 (1.0-3.2); LYMPHOCYTES % 32.1 % (18.0-39.1); MEAN CORPUSCULAR HEMOGLOBIN 32.8 pg (28-32); MEAN CORPUSCULAR HGB CONC 32.3 g/dL (31-35); MEAN CORPUSCULAR VOLUME 101.4 fL (81-99); MONOCYTES # (AUTO) 0.8 (0.2-0.8); MONOCYTES % 14.6 % (4.4-11.3); NEUTROPHILS # (AUTO) 2.8 (2.1-6.9); NEUTROPHILS % 50.4 % (38.7-80.0); PLATELET COUNT 207 x10e3/uL (140-360); RED BLOOD COUNT 3.63 x10e6/uL (3.6-5.1); WHITE BLOOD COUNT 5.61 x10e3/uL (4.8-10.8)
[~2024-04-25] MED LIST changes: +AMLODIPINE BESYL5 MG PO; +AMOX TR-K CLV1 EAC2 PO; +ARAVA20 MG PO; +BARIATRIC MV-I1 EACH PO; +COLLAGEN 15001 EACH PO; +CYCLOBENZAPRINE10 MG PO; +DICYCLOMINE HCL20 MG PO; +GLUCAGON FOR INJ 1 MG VIAL ONE; +HYALURONIC ACID60 MG PO; +HYOSCYAMINE SULFATE 0.5 MG/ML INJ ONE; +KERATIN PO; +LOSARTAN POTAS100 MG PO; +LOSARTAN POTASS25 MG PO; +MAGNESIUM OXID400 MG PO; +ONDANSETRON ODT4 MG PO; +PROPOFOL IV EMULSION 50 ML IV ONE; +SAW PALMETTO450 MG PO; +VIT D3 PO; +vit c PO
[2024-04-25] MEDS: LACTATED RINGER'S 1,000 ML ONE (11:33)
[2024-04-25 13:16] VITALS: TEMP 97.6
[2024-04-25 13:45] VITALS: BP 140/70; PULSE 68; RESP 16; O2SAT 100
== END | disposition home or self-care (01) ==
LOC: OR 10:55
PROVIDERS: ATTEND Internal Medicine Gastroenterology
DX: K29.60 Other gastritis without bleeding (principal); Z86.010 Personal history of colon polyps; K59.00 Constipation, unspecified; K57.92 Diverticulitis of intestine, part unspecified, without perforation or abscess without bleeding; K31.A19 Gastric intestinal metaplasia without dysplasia, unspecified site; Z98.84 Bariatric surgery status; K59.09 Other constipation; K64.8 Other hemorrhoids; Z71.3 Dietary counseling and surveillance; G47.33 Obstructive sleep apnea (adult) (pediatric); I10 Essential (primary) hypertension; Z71.89 Other specified counseling; E78.5 Hyperlipidemia, unspecified; M32.9 Systemic lupus erythematosus, unspecified; M06.9 Rheumatoid arthritis, unspecified; Z91.041 Radiographic dye allergy status; Z01.810 Encounter for preprocedural cardiovascular examination; Z01.812 Encounter for preprocedural laboratory examination; Z79.82 Long term (current) use of aspirin; Z79.899 Other long term (current) drug therapy; Z68.27 Body mass index [BMI] 27.0-27.9, adult
CPT/HCPCS: 36415; 43239; 45378; 85025; 88305; 88342; 93005; J1610; J1980; J2470; J2704; J7121